=== PATIENT | female | born 1960 | race Caucasian/White ===

== ENCOUNTER → 2017-10-12 | Outpatient (CLI) | payer BC ==
--- NOTE | 2017-10-12 16:32 | RADIOLOGY IMAGING REPORT ---
FACILITY: [facility] PATIENT NAME: LENNIE TOWNSEND : [id number] MR: [id number] V: [id number] EXAM DATE: ORDERING PHYSICIAN: PAGE HERNANDEZ TECHNOLOGIST: Andra Alcazar PROCEDURE:BILATERAL DIGITAL SCREENING MAMMOGRAM WITH CAD ASSISTED INTERPRETATION & 3D TOMOSYNTHESIS TECHNIQUE: Routine CC & MLO 3D tomographic images were obtained of both breasts. CAD was used. COMPARISON:Dating back to 2012 are available. BREAST DENSITY: Breast density is primarily fatty replaced. INDICATIONS:screening FINDINGS: There is no dominant mass, suspicious cluster of calcifications or persistent areas of architectural distortion. DIAGNOSTIC CATEGORY 1--NEGATIVE. RECOMMENDATIONS: ROUTINE MAMMOGRAM AND CLINICAL EVALUATION IN 1 YR. IMPRESSION: BIRADS 1: Negative. Dictated by: Ruddy Macias M.D. on 10/12/2017 at 15:57 Transcribed by: LEDY on 10/12/2017 at 15:59 Approved by: Ruddy Macias M.D. on 10/12/2017 at 16:31 [facility]
== END ==
LOC: MAMO 00:46
PROVIDERS: ATTEND Obstetrics & Gynecology
DX: Z12.31 Encounter for screening mammogram for malignant neoplasm of breast (principal)
CPT/HCPCS: 77063; 77067

== ENCOUNTER → 2018-12-01 | Outpatient (CLI) | payer BC ==
--- NOTE | 2018-12-02 15:02 | RADIOLOGY IMAGING REPORT ---
FACILITY: [facility] PATIENT NAME: LENNIE TOWNSEND : [id number] MR: [id number] V: [id number] EXAM DATE: [id number] ORDERING PHYSICIAN: SHREE RAYMOND TECHNOLOGIST: Andra Alcazar PROCEDURE:BILATERAL DIGITAL SCREENING MAMMOGRAM WITH CAD ASSISTED INTERPRETATION & 3D TOMOSYNTHESIS COMPARISON:Prior mammograms 10/12/17, 08/10/16, 07/29/15, 05/21/14, 05/24/13, 05/18/13. INDICATIONS:screening FINDINGS: The breasts are almost entirely fatty. The parenchymal pattern has remained stable allowing for difference in mammographic technique & patient positioning. DIAGNOSTIC CATEGORY 1--NEGATIVE. RECOMMENDATIONS: ROUTINE MAMMOGRAM AND CLINICAL EVALUATION. IMPRESSION: BIRADS 1: Negative. No significant abnormality is seen. Dictated by: Melinda Neville M.D. on 12/01/2018 at 16:17 Transcribed by: LUCERO on 12/02/2018 at 13:47 Approved by: Melinda Neville M.D. on 12/02/2018 at 15:01 [facility]
== END ==
LOC: MAMO 11-04 02:24
PROVIDERS: ATTEND Physician Assistant
DX: Z12.31 Encounter for screening mammogram for malignant neoplasm of breast (principal)
CPT/HCPCS: 77063; 77067